=== PATIENT | female | born 1995 | race Caucasian/White ===

== ENCOUNTER → 2017-01-19 | Outpatient (REF) | payer OTHER | LOC: M SFHCWAGY 10:58 | PROVIDERS: ATTEND Nurse Practitioner Family | DX: Z12.4 Encounter for screening for malignant neoplasm of cervix (principal); Z12.31 Encounter for screening mammogram for malignant neoplasm of breast ==

== ENCOUNTER 2017-09-18 18:16 | Emergency (ER) | payer MEDICAID, OTHER ==
[~2017-09-18] VITALS: Ht 152.4 cm; Wt 86.4 kg
[2017-09-18 19:06] LABS: BASO % 0.2 % (0.0-1.0); EOS # 0.2 10^3/uL (0.0-0.50); EOS % 1.9 % (0.0-3.0); IMMATURE GRANULOCYTE % 0.4 % (0-0); LYMPH # 2.2 10^3/uL (1.5-6.5); LYMPH % 25.9 % (24.0-44.0); MEAN CORPUSCULAR HEMOGLOBIN 31.1 pg (27.0-33.0); MEAN CORPUSCULAR HGB CONC 34.4 g/dl (32.0-36.5); MEAN CORPUSCULAR VOLUME 90.2 fl (80.0-96.0); MONO # 0.4 10^3/uL (0.0-0.8); MONO % 4.7 % (0.0-5.0); NEUTROPHILS # 5.6 10^3/uL (1.8-7.7); NEUTROPHILS % 66.9 % (36.0-66.0); PLATELET COUNT, AUTOMATED 284 10^3/uL (150-450); RED CELL DISTRIBUTION WIDTH 11.3 % (11.5-14.5); WHITE BLOOD COUNT 8.4 10^3/uL (4.0-10.0)
--- NOTE | 2017-09-18 20:40 | REPUSA ---
Clinical history: bleeding. Findings: Real-time transabdominal and transvaginal ultrasound images of the pelvis were obtained. A retroverted uterus is noted, measuring 7.1 x 4.1 x 4.8 cm. The uterus demonstrates normal echotexture and echogenicity. The endometrial stripe measures 6 mm and is within normal limits. There is no evid ence of an intrauterine gestation. The right ovary measures 2.8 x 1.4 x 1.1 cm. The left ovary measur es 3.3 x 0.9 x 1.1 cm. No adnexal masses are seen. Color Doppler flow is seen within both ovaries. Th ere is trace amount of free fluid. Impression: Unremarkable ultrasound examination of the pelvis. Now intrauterine is demonstr ated. No other gross abnormality. Differential diagnosis includes early , missed , o r ectopic . Follow-up with serial serum beta hCG levels is recommended for further evaluatio n.
[2017-09-18 20:47] VITALS: BP 131/89
== END 2017-09-18 21:03 | disposition home or self-care (01) ==
LOC: M ED 18:16
DX: O20.0 Threatened abortion (principal); Z3A.00 Weeks of gestation of pregnancy not specified

== ENCOUNTER → 2017-09-20 | Outpatient (CLI) | payer OTHER | LOC: M LAB 13:51 | PROVIDERS: ATTEND Nurse Practitioner Family | DX: N92.0 Excessive and frequent menstruation with regular cycle (principal) ==

== ENCOUNTER → 2018-09-25 | Outpatient (CLI) | payer OTHER | LOC: M LRY 16:42 | DX: M54.5 Low back pain (principal) | CPT/HCPCS: 72110 ==

== ENCOUNTER → 2019-02-10 | Outpatient (CLI) | payer OTHER ==
--- NOTE | 2019-02-10 13:43 | REP ---
SACRUM-COCCYX, THREE VIEWS: HISTORY: Coccygeal pain . COMPARISON: 09/25/2018 There is no acute fracture or subluxation. The intervertebral discs are normal in height. IMPRESSION: There is no acute fracture or subluxation. Electronically Signed by Anthony Machado MD 02/10/2019 01:46 P
== END ==
LOC: M LRY 12:19
PROVIDERS: ATTEND Physician Assistant
DX: M53.3 Sacrococcygeal disorders, not elsewhere classified (principal)

== ENCOUNTER → 2019-03-23 | Outpatient (REF) | payer OTHER ==
[2019-03-23 17:07] LABS: BLOOD UREA NITROGEN 9 MG/DL (7-18); CALCIUM LEVEL 8.7 MG/DL (8.5-10.1); CARBON DIOXIDE LEVEL 28 MEQ/L (21-32); CHLORIDE LEVEL 104 MEQ/L (98-107); CREATININE FOR GFR 0.75 MG/DL (0.55-1.30); GLOMERULAR FILTRATION RATE > 60.0 (>60); GLUCOSE, FASTING 91 MG/DL (70-100); POTASSIUM SERUM 4.2 MEQ/L (3.5-5.1); SODIUM LEVEL 139 MEQ/L (136-145)
== END ==
LOC: M SFHCLERA 11:31
PROVIDERS: ATTEND Nurse Practitioner Family
DX: Z00.00 Encounter for general adult medical examination without abnormal findings (principal)

== ENCOUNTER → 2019-04-25 | Outpatient (CLI) | payer OTHER ==
[2019-04-26 10:13] LABS: FREE T4 0.95 NG/DL (0.76-1.46); THYROID STIMULATING HORMONE 1.31 uIU/ML (0.358-3.740)
[2019-04-26 10:33] LABS: PROLACTIN 5.8 NG/ML
[2019-04-26 10:37] LABS: ESTRADIOL 33.4 PG/ML; FOLLICLE STIMULATING HORMONE 8.3 mIU/mL
== END ==
LOC: M SMT 14:19
PROVIDERS: ATTEND Advanced Practice Midwife
DX: N92.1 Excessive and frequent menstruation with irregular cycle (principal)

== ENCOUNTER → 2019-06-23 | Outpatient (REF) | payer OTHER | LOC: M SFHCLERA 20:42 | PROVIDERS: ATTEND Nurse Practitioner Family | DX: J02.9 Acute pharyngitis, unspecified (principal) ==